=== PATIENT | male | born 1975 | race Caucasian/White ===

== ENCOUNTER 2017-05-19 02:37 | Emergency (ER) | payer MEDICARE ==
[2017-05-19 03:24] LABS: BASOPHILS 0.5 % (0-2); EOSINOPHILS 0.7 % (0-7); HEMATOCRIT 49.5 % (42.0-54.0); HEMOGLOBIN 17.1 g/dL (13.5-17.5); IMMATURE GRANULOCYTES 0.5 % (0-5); MCH 33.1 pg (26.0-34.0); MCHC 34.5 g/dL (31.0-37.0); MCV 95.9 fL (80.0-100.0); MEAN PLATELET VOLUME 9.3 fL (7.4-10.4); MONOCYTES 10.7 % (2-11); NEUTROPHILS 53.6 % (40-80); RBC 5.16 10x6/uL (4.20-6.10); RDW 13.8 % (11.5-14.5); WBC 4.2 10x3/uL (4.8-10.8)
[2017-05-19 03:35] LABS: UDS - AMPHET NEGATIVE QUAL (NEGATIVE); UDS - BARB NEGATIVE QUAL (NEGATIVE); UDS - BENZO NEGATIVE QUAL (NEGATIVE); UDS - COCAINE NEGATIVE QUAL (NEGATIVE); UDS - OPIATE POSITIVE QUAL (NEGATIVE); UDS - PCP NEGATIVE QUAL (NEGATIVE); UDS - THC NEGATIVE QUAL (NEGATIVE)
[2017-05-19 03:38] LABS: APPEARANCE CLEAR (CLEAR); BILIRUBIN NEGATIVE (NEGATIVE); COLOR YELLOW (YELLOW); GLUCOSE NEGATIVE (NEGATIVE); KETONE NEGATIVE (NEGATIVE); NITRITE NEGATIVE (NEGATIVE); PROTEIN NEGATIVE (NEGATIVE); SPECIFIC GRAVITY 1.015 (1.005-1.020); UROBILINOGEN NORMAL (NORMAL)
[2017-05-19 03:38] LABS: ALBUMIN 3.6 g/dL (3.4-5.0); ANION GAP 17.2 mmol/L (8-16); BILIRUBIN - TOTAL 0.18 mg/dL (0.2-1.3); CALCIUM 9.1 mg/dL (8.5-10.1); CARBON DIOXIDE 27.4 mmol/L (21.0-32.0); CREATININE - SERUM 1.5 mg/dL (0.6-1.3); POTASSIUM - SERUM 3.6 mmol/L (3.5-5.1)
[2017-05-19 03:39] LABS: PLATELET COUNT 377 10x3/uL (130-400)
== END 2017-05-19 10:46 | disposition short-term general hospital (02) ==
LOC: D.ER 02:37
PROVIDERS: Family Medicine
DX: F33.9 Major depressive disorder, recurrent, unspecified (principal); F10.129 Alcohol abuse with intoxication, unspecified; I10 Essential (primary) hypertension

== ENCOUNTER 2017-06-21 16:22 | Emergency (ER) | payer MEDICARE ==
[2017-06-21 18:13] LABS: APPEARANCE TURBID (CLEAR); COLOR RED (YELLOW)
[2017-06-21 18:14] LABS: BACTERIA MANY /hpf (NONE SEEN); BILIRUBIN NEGATIVE (NEGATIVE); GLUCOSE NEGATIVE (NEGATIVE); KETONE NEGATIVE (NEGATIVE); NITRITE NEGATIVE (NEGATIVE); PROTEIN 2+ mg/dL (NEGATIVE); RED CELLS - URINE >50 /hpf (0-5); UROBILINOGEN NORMAL (NORMAL)
[2017-06-21 20:10] LABS: UDS - AMPHET NEGATIVE QUAL (NEGATIVE); UDS - BARB NEGATIVE QUAL (NEGATIVE); UDS - BENZO NEGATIVE QUAL (NEGATIVE); UDS - COCAINE NEGATIVE QUAL (NEGATIVE); UDS - OPIATE POSITIVE QUAL (NEGATIVE); UDS - PCP NEGATIVE QUAL (NEGATIVE); UDS - THC NEGATIVE QUAL (NEGATIVE)
[2017-06-21 20:19] LABS: BASOPHILS 0.2 % (0-2); EOSINOPHILS 0.1 % (0-7); HEMATOCRIT 42.6 % (42.0-54.0); HEMOGLOBIN 14.4 g/dL (13.5-17.5); IMMATURE GRANULOCYTES 0.3 % (0-5); LYMPHOCYTES 7.3 % (15-50); MCH 31.2 pg (26.0-34.0); MCHC 33.8 g/dL (31.0-37.0); MCV 92.4 fL (80.0-100.0); MEAN PLATELET VOLUME 9.7 fL (7.4-10.4); MONOCYTES 6.5 % (2-11); NEUTROPHILS 85.6 % (40-80); PLATELET COUNT 254 10x3/uL (130-400); RBC 4.61 10x6/uL (4.20-6.10); WBC 13.2 10x3/uL (4.8-10.8)
[2017-06-21 20:35] LABS: ALBUMIN 3.7 g/dL (3.4-5.0); ANION GAP 11.6 mmol/L (8-16); BILIRUBIN - TOTAL 0.8 mg/dL (0.2-1.3); CALCIUM 8.9 mg/dL (8.5-10.1); CARBON DIOXIDE 30.7 mmol/L (21.0-32.0); CREATININE - SERUM 1.4 mg/dL (0.6-1.3); POTASSIUM - SERUM 3.3 mmol/L (3.5-5.1); PROTEIN - SERUM 6.9 g/dL (6.4-8.2)
== END 2017-06-21 22:38 | disposition home or self-care (01) ==
LOC: D.ER 16:22
PROVIDERS: Emergency Medicine; Nurse Practitioner Family
DX: N23 Unspecified renal colic (principal); R31.9 Hematuria, unspecified; I10 Essential (primary) hypertension

== ENCOUNTER 2018-04-07 20:25 | Inpatient (IN) | payer MEDICARE ==
[~2018-04-07] VITALS: Ht 190.5 cm; Wt 93.2 kg
[2018-04-07] MEDS ORDERED: NEURONTIN600 MG PO (20:54)
[2018-04-07] MEDS ORDERED: LISINOPRIL10 MG PO (20:54)
[2018-04-07 21:26] LABS: BASOPHILS 0.1 % (0-2); EOSINOPHILS 0 % (0-7); HEMATOCRIT 47.2 % (42.0-54.0); HEMOGLOBIN 16.8 g/dL (13.5-17.5); IMMATURE GRANULOCYTES 0.3 % (0-5); LYMPHOCYTES 4.5 % (15-50); MCH 36.1 pg (26.0-34.0); MCHC 35.6 g/dL (31.0-37.0); MCV 101.3 fL (80.0-100.0); MEAN PLATELET VOLUME 10.4 fL (7.4-10.4); MONOCYTES 3.2 % (2-11); NEUTROPHILS 91.9 % (40-80); RBC 4.66 10x6/uL (4.20-6.10); RDW 13.5 % (11.5-14.5); WBC 15.2 10x3/uL (4.8-10.8)
[2018-04-07 21:32] LABS: PLATELET COUNT 165 10x3/uL (130-400)
[2018-04-07 21:34] LABS: APTT 21.4 SECONDS (22.8-39.4); INR 0.89 (0.85-1.17); PROTIME 11.5 SECONDS (11.6-15.0)
[2018-04-07 21:39] LABS: ALBUMIN 3.8 g/dL (3.4-5.0); ALKALINE PHOSPHATASE 132 U/L (46-116); ALT (SGPT) 35 U/L (10-68); BILIRUBIN - TOTAL 0.73 mg/dL (0.2-1.3); CALC OSMOLALITY 270 mosm/kg (275-300); CHLORIDE - SERUM 94 mmol/L (98-107); POTASSIUM - SERUM 3.8 mmol/L (3.5-5.1); PROTEIN - SERUM 7.8 g/dL (6.4-8.2); SODIUM 133 mmol/L (136-145); UREA NITROGEN 15 mg/dL (7-18); eGFR NON AFRICAN AMERICAN 86 mL/min (90-120)
[2018-04-07 21:42] LABS: GLUCOSE 166 mg/dL (74-106)
[2018-04-07 21:51] LABS: CKMB 3.4 U/L (0.0-3.6); CREATINE KINASE 224 UL (21-232); MAGNESIUM - SERUM 1.2 mg/dL (1.8-2.4); TROPONIN-I < 0.017 ng/mL (0.000-0.060)
[2018-04-08] VITALS (13 sets, daily range): BP systolic 125–169; BP diastolic 71–106; BMI 25.6
[2018-04-08 00:02] LABS: APPEARANCE CLEAR (CLEAR); COLOR YELLOW (YELLOW); NITRITE NEGATIVE (NEGATIVE); PROTEIN 1+ mg/dL (NEGATIVE); SPECIFIC GRAVITY 1.025 (1.005-1.020)
[2018-04-08 00:03] LABS: BILIRUBIN NEGATIVE (NEGATIVE); GLUCOSE 250 mg/dL (NEGATIVE); KETONE SMALL mg/dL (NEGATIVE); UROBILINOGEN NORMAL (NORMAL)
[2018-04-08 00:05] LABS: BACTERIA FEW /hpf (NONE SEEN); EPITHELIAL CELLS 0-5 /hpf (0-5); HYALINE CAST 0-5 /lpf (NONE SEEN); MUCUS <1+ /lpf (NONE SEEN); RED CELLS - URINE 0-5 /hpf (0-5); WHITE CELLS - URINE 0-5 /hpf (0-5)
[2018-04-08 10:26] LABS: AMYLASE - SERUM 272 U/L (25-115)
[2018-04-08 10:33] LABS: LIPASE 1947 U/L (73-393)
[2018-04-09] VITALS (8 sets, daily range): BP systolic 133–154; BP diastolic 80–107; Ht 190.5 cm; Wt 93.2 kg
[2018-04-09 04:59] LABS: BASOPHILS 0.1 % (0-2); EOSINOPHILS 0 % (0-7); HEMATOCRIT 46.4 % (42.0-54.0); HEMOGLOBIN 16.1 g/dL (13.5-17.5); IMMATURE GRANULOCYTES 0.3 % (0-5); LYMPHOCYTES 2.5 % (15-50); MCH 35.6 pg (26.0-34.0); MCHC 34.7 g/dL (31.0-37.0); MCV 102.7 fL (80.0-100.0); MEAN PLATELET VOLUME 10.5 fL (7.4-10.4); MONOCYTES 4.4 % (2-11); NEUTROPHILS 92.7 % (40-80); RBC 4.52 10x6/uL (4.20-6.10); RDW 13.7 % (11.5-14.5)
[2018-04-09 05:08] LABS: PLATELET COUNT 110 10x3/uL (130-400); WBC 19.4 10x3/uL (4.8-10.8)
[2018-04-09 05:34] LABS: ALBUMIN 3.1 g/dL (3.4-5.0); ALKALINE PHOSPHATASE 104 U/L (46-116); BILIRUBIN - TOTAL 0.76 mg/dL (0.2-1.3); CALCIUM 8.4 mg/dL (8.5-10.1); CARBON DIOXIDE 24.8 mmol/L (21.0-32.0); CHLORIDE - SERUM 98 mmol/L (98-107); CREATININE - SERUM 0.9 mg/dL (0.6-1.3); LIPASE 598 U/L (73-393); POTASSIUM - SERUM 3.4 mmol/L (3.5-5.1); PROTEIN - SERUM 7.4 g/dL (6.4-8.2); SODIUM 133 mmol/L (136-145); eGFR NON AFRICAN AMERICAN > 90 mL/min (90-120)
[2018-04-09 05:35] LABS: ALT (SGPT) 24 U/L (10-68); AMYLASE - SERUM 136 U/L (25-115); CALC OSMOLALITY 264 mosm/kg (275-300); GLUCOSE 96 mg/dL (74-106); UREA NITROGEN 9 mg/dL (7-18)
[2018-04-10 00:53] VITALS: BP 125/78
[2018-04-10 05:48] VITALS: BP 150/80
[2018-04-10 07:20] VITALS: BP 139/92
[2018-04-10 08:34] LABS: BASOPHILS 0.1 % (0-2); EOSINOPHILS 0.3 % (0-7); HEMATOCRIT 40.4 % (42.0-54.0); HEMOGLOBIN 13.7 g/dL (13.5-17.5); IMMATURE GRANULOCYTES 0.2 % (0-5); LYMPHOCYTES 4.2 % (15-50); MCH 34.9 pg (26.0-34.0); MCHC 33.9 g/dL (31.0-37.0); MCV 102.8 fL (80.0-100.0); MEAN PLATELET VOLUME 10.7 fL (7.4-10.4); MONOCYTES 6.1 % (2-11); NEUTROPHILS 89.1 % (40-80); PLATELET COUNT 89 10x3/uL (130-400); RBC 3.93 10x6/uL (4.20-6.10); RDW 13.5 % (11.5-14.5)
[2018-04-10 08:38] LABS: WBC 12.4 10x3/uL (4.8-10.8)
[2018-04-10 09:01] LABS: ALBUMIN 2.6 g/dL (3.4-5.0); ALKALINE PHOSPHATASE 110 U/L (46-116); ALT (SGPT) 22 U/L (10-68); AMYLASE - SERUM 28 U/L (25-115); BILIRUBIN - TOTAL 0.78 mg/dL (0.2-1.3); CALC OSMOLALITY 266 mosm/kg (275-300); CARBON DIOXIDE 25.1 mmol/L (21.0-32.0); CHLORIDE - SERUM 98 mmol/L (98-107); CREATININE - SERUM 0.7 mg/dL (0.6-1.3); GLUCOSE 70 mg/dL (74-106); LIPASE 113 U/L (73-393); POTASSIUM - SERUM 3.7 mmol/L (3.5-5.1); PROTEIN - SERUM 6.2 g/dL (6.4-8.2); SODIUM 135 mmol/L (136-145); UREA NITROGEN 9 mg/dL (7-18); eGFR NON AFRICAN AMERICAN > 90 mL/min (90-120)
[2018-04-10 12:00] VITALS: BP 156/91
[2018-04-10 16:30] VITALS: BP 150/93
[2018-04-10 23:56] VITALS: BP 148/90
[2018-04-11 04:00] VITALS: BP 151/92
[2018-04-11 07:37] LABS: BASOPHILS 0.1 % (0-2); EOSINOPHILS 1.9 % (0-7); HEMATOCRIT 37.1 % (42.0-54.0); HEMOGLOBIN 12.9 g/dL (13.5-17.5); IMMATURE GRANULOCYTES 0.4 % (0-5); LYMPHOCYTES 4.9 % (15-50); MCH 35.1 pg (26.0-34.0); MCHC 34.8 g/dL (31.0-37.0); MCV 101.1 fL (80.0-100.0); MEAN PLATELET VOLUME 10.5 fL (7.4-10.4); MONOCYTES 11.1 % (2-11); NEUTROPHILS 81.6 % (40-80); PLATELET COUNT 103 10x3/uL (130-400); RBC 3.67 10x6/uL (4.20-6.10); RDW 13.5 % (11.5-14.5)
[2018-04-11 08:11] LABS: ALBUMIN 2.3 g/dL (3.4-5.0); ALKALINE PHOSPHATASE 98 U/L (46-116); ALT (SGPT) 21 U/L (10-68); AMYLASE - SERUM 26 U/L (25-115); CALCIUM 8.2 mg/dL (8.5-10.1); CHLORIDE - SERUM 98 mmol/L (98-107); CREATININE - SERUM 0.7 mg/dL (0.6-1.3); LIPASE 130 U/L (73-393); PROTEIN - SERUM 6.5 g/dL (6.4-8.2); SODIUM 135 mmol/L (136-145); UREA NITROGEN 8 mg/dL (7-18); eGFR NON AFRICAN AMERICAN > 90 mL/min (90-120)
[2018-04-11 08:14] LABS: CALC OSMOLALITY 269 mosm/kg (275-300); GLUCOSE 143 mg/dL (74-106); POTASSIUM - SERUM 2.9 mmol/L (3.5-5.1)
[2018-04-11 08:18] VITALS: BP 151/96
[2018-04-11 12:01] VITALS: BP 144/96
== END 2018-04-11 15:34 | disposition home or self-care (01) | DRG 438 ==
LOC: D.ER 20:25 → D.MS 04-08 02:36 → D.EDHOLD 04-08 02:36 → D.MS 04-08 15:23 → D.WS 04-09 17:07 → D.M3 04-10 17:00
PROVIDERS: Family Medicine
DX: K85.90 Acute pancreatitis without necrosis or infection, unspecified (principal); E43 Unspecified severe protein-calorie malnutrition; F17.213 Nicotine dependence, cigarettes, with withdrawal; E87.1 Hypo-osmolality and hyponatremia; F10.20 Alcohol dependence, uncomplicated; Z68.25 Body mass index [BMI] 25.0-25.9, adult; I10 Essential (primary) hypertension; R73.9 Hyperglycemia, unspecified